=== PATIENT | female | born 1975 | race Caucasian/White ===

== ENCOUNTER 2020-01-09 06:27 | Day surgery (SDC) | payer BC ==
[2020-01-06 12:30] LABS: Urine Appearance CLEAR; Urine Bilirubin NEGATIVE (NEG); Urine Blood NEGATIVE (NEG); Urine Color YELLOW; Urine Glucose NEGATIVE (NEG); Urine Protein NEGATIVE (NEG); Urine Specific Gravity 1.015 (1.005-1.030)
[2020-01-06 12:32] LABS: Urine Microscopic Reflex NO UMIC
[2020-01-06 12:38] LABS: Absolute Lymphocytes (CBC) 2.6 K/uL (0.7-4.9); Basophils % 0.5 % (0-1.3); Hematocrit 40.2 % (36.0-45.0); Lymphocytes % 36.5 % (15.3-44.8); MPV 9.2 fL (7.6-11.3); RBC Red Blood Cell Count 4.19 M/uL (3.86-4.86)
[2020-01-09 06:44] LABS: Specific Gravity 1.025 (1.005-1.030)
[2020-01-09] MEDS ORDERED: SCOPOLAMINE HYDROBROMIDE PATCH TD ONE (06:59)
[2020-01-09] MEDS ORDERED: Ringers Lactate 1,000 ML IV ONE ×3 (06:59→12:27)
[2020-01-09] MEDS ORDERED: propofoL 200 MG/20 ML VIAL IV ONE (07:12)
[2020-01-09] MEDS ORDERED: GLYCOPYRROLATE 0.2 MG/ML SYR ONE (07:13)
[2020-01-09] MEDS ORDERED: ROCURONIUM 50 MG/5 ML VIAL IV ONE ×2 (07:13→08:27)
[2020-01-09] MEDS ORDERED: LIDOCAINE 2% MPF 5 ML VIAL ONE (07:14)
[2020-01-09] MEDS ORDERED: FENTANYL CITR 250 MCG/5 ML ONE ×2 (07:15→09:12)
[2020-01-09] MEDS ORDERED: NEOSTIGMINE 1 MG/ML -5 ML ONE (07:16)
[2020-01-09] MEDS ORDERED: dexAMETHasone 10 MG/ML VIAL ONE (07:16)
[2020-01-09] MEDS ORDERED: ONDANSETRON 4 MG/2 ML VIAL ONE ×4 (07:16→11:34)
[2020-01-09] MEDS ORDERED: MIDAZOLAM HCL 2 MG/2 ML INJ ONE (07:23)
[2020-01-09] MEDS ORDERED: CEFAZOLIN/SWI 2gm 2 GM/20 ML SYR ONE (07:55)
[2020-01-09] MEDS ORDERED: EPHEDRINE SULF 50 MG/ML VIAL ONE (08:13)
[2020-01-09] MEDS: BUPIVACAINE 0.25% PF 30 ML VIAL ONE ×2 (08:21→08:48)
[2020-01-09] MEDS ORDERED: MORPHINE 10 MG/ML VIAL ONE (09:11)
[2020-01-09] MEDS ORDERED: KETOROLAC 30 MG/ML INJ ONE (10:12)
[2020-01-09] MEDS: HYDROMORPHONE HCL 1 MG/ML INJ ONE ×2 (10:59→11:05)
[2020-01-09] MEDS ORDERED: HYDROMORPHONE HCL 1 MG/ML INJ ONE ×2 (11:16→11:24)
[2020-01-09] MEDS ORDERED: PROMETHAZINE INJ 25 MG/ML AMP ONE (11:40)
[2020-01-09] MEDS ORDERED: CODEINE 30MG/APAP 300MG TAB ONE (12:55)
[2020-01-09 14:32] VITALS: BP 90/69; TEMP 97; O2SAT 100
--- NOTE | 2020-01-09 22:35 | OP ---
Date of Procedure: 01/09/2020 Surgeon: Cayla Gill MD Lozenge Dough Mixer: Frederick. Preoperative Diagnoses: Pelvic pain, history of menorrhagia status post ablation, history of dysmeno rrhea, left lower quadrant pain, low back pain. Postoperative Diagnoses: Pelvic pain, history of menorrhagia status post ablation, history of dysmen orrhea, left lower quadrant pain, low back pain. Procedures Performed: Total laparoscopic hysterectomy, bilateral salpingectomy, left oophorectomy, a nd lysis of adhesion. Anesthesia: General endotracheal. Estimated Blood Loss: Minimal. Specimens: Uterus, bilateral tubes, and left ovary. Complications: None. Drains: No drains. Condition: Stable. Indications: Patient is a 44-year-old with history of menorrhagia; status post ablation. Her bleedi ng has resolved. However, her pelvic pain and dysmenorrhea still remained. The left lower quadrant pain has gotten worse over the past 2 years. Discussed about various options of laparoscopy with pos sible endo-treatment or bilateral salpingectomy and oophorectomy on the left side versus laparoscopic hysterectomy and bilateral salpingectomy with left oophorectomy. After discussing the benefits and risks of each procedure, she was consented for the hysterectomy and then she was brought to the OR. Description Of Procedure: 2 g of Ancef was given preop. She was taken back to OR, placed in supine fashion. On the operating table general anesthesia given, placed in dorsal lithotomy position. Arms tucked by the side. Time-out done. Abdomen, vulva, vagina, and perineum prepped and draped in a st erile fashion. A large VCare was introduced into the uterus with slight resistance due to her ablati on, but placed without a problem and then De Leon placed and connected through cysto-tubing to an LR ba g, emptied 300. After the bottom area was draped a 1 cm infraumbilical incision was made with a scalpel, opened with laparoscopy technique. Fascia was incised, tagged with 0 Vicryl sutures. Peritoneum entered sharply . S-retractors were placed. Garrett introduced. Site of entry was checked, unremarkable. Upper abd ominal surface was unremarkable as well. No significant adhesions from the bypass. Patient was plac ed in Trendelenburg position, 10 mm suprapubic, 5 mm left lower quadrant ports all placed after Denise ine was injected in the skin and the fascia. Then adhesions of the bowel were taken from the right l ower quadrant the sigmoid from the sidewall, almost had an area where there could be bowel entrapment from intussusception or internal herniation. Once this was resolved, both ureters were traced from the pelvic brim to the ureteric tunnel. There was no anatomical distortion in the courses of the ureters. Bipolar LigaSure was taken and left tube was removed. Utero-ovarian ligament taken down, round ligam ent taken down on the left side. Broad ligament opened up to create the bladder flap all the way to the right side and posteriorly to the uterosacral ligament. The vessels were skeletonized and the bl adder was reflected inferiorly, anterior vaginal wall was exposed. On the opposite side, similar dissection was performed after removing the tube, utero-ovarian ligamen t and round ligament were all taken down, the broad ligament was opened up anteriorly connected with the bladder flap on the opposite side, and posteriorly taken down to the uterosacral ligament. Utero sacral ligaments were attempted to be left attached to the apex of the vagina. Then the vessels were skeletonized on the right side as well and then monopolar hook blade was used to clean up the anteri or vaginal wall and the vesicovaginal space was entered and the bladder was dissected inferiorly. Bipolar basket tip was used to cauterize both the vessels first, then the LigaSure was used to take t hem down, then cardinal ligament was taken down with the help of the bipolar and then the LigaSure. On the opposite side similar dissection was performed and then circumferential colpotomy with monopol ar hook blade. The specimen was pulled out through the vagina without any problems. The left ovary was then taken down after visualizing the ureter at the level of the pelvic brim. The ovarian vessel s were taken down the IP ligament. The specimen was retrieved through the vagina. There was a cyst on the left ovary which appeared to be hemorrhagic, unsure if this was an endometrioma until this was removed as the patient's symptoms w ere mostly on the left side. Thorough irrigation and suction of the vaginal cuff was performed. Then 2-layer closure with 2-0 V-L oc suture was done starting on the right side. First layer vaginal epithelium and sub-epithelium wer e closed in a continuous running fashion. Then the connective tissue, fascia, and the posterior and anterior wall were closed on top of it and 2 back sutures were placed so that V-Loc would not slip. While closing the fascial layers, the uterosacrals were included in the closure and the apex was well supported at the end of the procedure. Ureters had no evidence of electrical, mechanical, or thermal injury to them. They had good peristal sis even at the end of the procedure. The trocars were removed, gas was desufflated, fascia closed w ith tag 0 Vicryl sutures and subcutaneous tissues brought together with simple chromic 3-0, simple 0 Vicryl suture at the suprapubic fascia, incisional fascia, and all the incisions injected with Marcai ne and closed with the help of 4-0 interrupted sutures in a subcuticular fashion. De Leon was removed. The vaginal pack that was placed for pneumo-occlusion was removed. Instrument, needle, and sponge counts were done and were correct at the end of the case. Patient tolerated the procedure well, she was recovered from anesthesia and taken to PACU in a stable condition. Inside the peritoneal cavity after the closure of the V-Loc, I closed the peritoneum was well with a running 3-0 Monocryl suture with intracorporeal knots on top of the vaginal introitus so that there was no ex posure of the V-Loc. STEPHANIE/EMILY Voice ID: [id number] Report ID: [id number]
== END 2020-01-09 14:30 | disposition home or self-care (01) ==
LOC: OR 06:27
PROVIDERS: ATTEND Obstetrics & Gynecology
PROC: 0UT14ZZ Resection of Left Ovary, Percutaneous Endoscopic Approach (ICD-10-PCS; 2020-01-09)
PROC: 0UT74ZZ Resection of Bilateral Fallopian Tubes, Percutaneous Endoscopic Approach (ICD-10-PCS; 2020-01-09)
PROC: 0UT94ZZ Resection of Uterus, Percutaneous Endoscopic Approach (ICD-10-PCS; principal; 2020-01-09 07:30)
DX: N92.0 Excessive and frequent menstruation with regular cycle (principal); N94.6 Dysmenorrhea, unspecified; N83.12 Corpus luteum cyst of left ovary; N83.8 Other noninflammatory disorders of ovary, fallopian tube and broad ligament; K66.0 Peritoneal adhesions (postprocedural) (postinfection); M54.5 Low back pain; F41.9 Anxiety disorder, unspecified; Z88.6 Allergy status to analgesic agent; Z90.49 Acquired absence of other specified parts of digestive tract; Z98.84 Bariatric surgery status
CPT/HCPCS: 85025; 36415; 86900; 86850; 81025; 86901; 88307; 81003; 58571; J2704; J2550; J2250; J3010 ×2; J1100; J1170 ×3; J2710; J0690; J7120 ×3; J2405 ×4

== ENCOUNTER 2020-07-06 18:06 | Emergency (ER) | payer BC, OTHER ==
--- OUTSIDE RECORDS SUMMARY | 2020-07-06 18:08 | XMS REPORT | Continuity of Care Document ---
:1975 Author Organization [facility] Care Team Providers Name Role Phone [facility] Unavailable Un available Problems Problem Status Onset Classification Date Comments Sourc e Date Reported 65105, REFLUX Active Mem orial 6 City Discharge 07/10/2016 Nickori al Diagnosis: [facility] Acute gastritis ABD PAIN Active Memoria l [facility] Calculus in Resolved Problem 07/10/2016 Ori rial biliary tract [facility] (disorder) Medications Medication Details Route Status Patient Ordering Order Source Instructions Provider Date Esomeprazole 40 40 mg = 1 Active MG Enteric cap, PO, 016 [facility] Coated Capsule Daily, # [facility] [Nexium] 30 cap, 1 Refill(s) Sucralfate 100 1 gm = 10 Active MG/ML Oral ml, PO, 016 [facility] Suspension QID-Before [facility] [Carafate] Meals, # 400 ml, 0 Refill(s) GI cocktail 30 mL, Inactive Route: PO, 016 [facility] Weight 63.636, kg, ONCE, STAT, Start date: 07/06/16 20:56:00 CDT, Stop date: 07/06/16 20:56:00 CDT Allergies, Adverse Reactions, Alerts Substance Category Reaction Severity Reaction Status Date Comments S ource type Reported Tape Assertion Drug Active allergy [facility] Vicodin Assertion Drug Active allergy [facility] Immunizations No Data Provided for This Section Results Order Name Results Value Reference Date Interpretation Comments Erika rce Range CHEM PANEL Amylase Lvl 63 25 - 115 07/06 [facility] CHEM PANEL Lipase Lvl 172 73 - 393 07/06 [facility] CHEM PANEL B/C Ratio 13 6 - 25 07/06 [facility] CHEM PANEL AGAP 12.7 10.0 - 07/06 MH 20.0 [facility] CHEM PANEL Globulin 3.8 2.7 - 4.2 07/06 [facility] CHEM PANEL A/G Ratio 1.0 0.7 - 1.6 07/06 [facility] CHEM PANEL Glucose Lvl 83 70 - 99 07/06 [facility] CHEM PANEL eGFR 87 07/06 Result Comment: The [facility] eGFR is City calculated using the CKD-EPI formula. In most young, healthy individuals the eGFR will be >90 mL/min/1.73m2 . The eGFR declines with age. An eGFR of 60-89 may be normal in some populations, particularly the elderly, for whom the CKD-EPI formula has not been extensively validated. Use of the eGFR is not recommended in the following populations:< br/>
Diann viduals with unstable creatinine concentration s, including patients and those with serious co-morbid conditions.<b r/>
Patie nts with extremes in muscle mass or diet.

The data above are obtained from the National Kidney Disease Education Program (NKDEP) which additionally recommends that when the eGFR is used in patients with extremes of body mass index for purposes of drug dosing, the eGFR should be multiplied by the estimated BMI. CHEM PANEL Creatinine 0.83 0.50 - 07/06 Lvl 1.40 /2015 [facility] CHEM PANEL AST 25 0 - 37 07/06 [facility] CHEM PANEL BUN 11 7 - 22 07/06 [facility] CHEM PANEL CO2 27 24 - 32 07/06 [facility] CHEM PANEL Calcium Lvl 9.1 8.5 - 10.5 07/06 [facility] CHEM PANEL Sodium Lvl 141 135 - 145 07/06 [facility] CHEM PANEL Albumin Lvl 3.9 3.5 - 5.0 07/06 [facility] CHEM PANEL Potassium Lvl 3.7 3.5 - 5.1 07/06 [facility] CHEM PANEL Chloride Lvl 105 95 - 109 07/06 [facility] CHEM PANEL Bili Total 0.8 0.2 - 1.3 07/06 [facility] CHEM PANEL ALT 37 0 - 65 07/06 [facility] CHEM PANEL Alk Phos 63 39 - 136 07/06 [facility] CHEM PANEL Total Protein 7.7 6.4 - 8.4 07/06 [facility] HEMATOLOGY Monocytes # 0.6 0.0 - 0.8 / /2015 [facility] HEMATOLOGY Basophils 0.2 0.0 - 1.0 09/ /2015 [facility] HEMATOLOGY Segs-Bands # 6.1 1.5 - 8.1 07/06 [facility] HEMATOLOGY Eosinophils 1.3 0.0 - 4.0 07/06 [facility] HEMATOLOGY Monocytes 5.8 2.0 - 12.0 07/06 [facility] HEMATOLOGY Lymphocytes # 3.8 1.0 - 5.5 07/06 [facility] HEMATOLOGY Segs 57.1 45.0 - 09 MH 75.0 /2015 [facility] HEMATOLOGY Lymphocytes 35.6 20.0 - 07/06 MH 40.0 /2015 [facility] HEMATOLOGY Eosinophils # 0.1 0.0 - 0.5 07/06 [facility] HEMATOLOGY Basophils # 0.0 0.0 - 0.2 07/06 [facility] HEMATOLOGY MCV 93.2 80.0 - 07/06 MH 98.0 /2015 [facility] HEMATOLOGY RBC 4.10 4.20 - 07/06 MH 5.40 /2015 [facility] HEMATOLOGY Hgb 13.1 12.0 - 07/06 MH 16.0 /2015 [facility] HEMATOLOGY Hct 38.3 36.0 - 07/06 MH 48.0 /2015 [facility] HEMATOLOGY MCH 32.0 27.0 - 07/06 MH 31.0 /2015 [facility] HEMATOLOGY WBC 10.7 3.7 - 10.4 07/06 [facility] HEMATOLOGY Platelet 224 133 - 450 07/06 [facility] HEMATOLOGY RDW 13.4 11.5 - 07/06 MH 14.5 /2015 [facility] HEMATOLOGY MCHC 34.4 32.0 - 07/06 MH 36.0 /2015 [facility] HEMATOLOGY MPV 8.6 7.4 - 10.4 07/06 [facility] URINE AND UA <=1.0 0.1 - 1.0 07/06 STOOL Urobilinogen mg/dL /2015 [facility] URINE AND UA Color Straw 07/06 STOOL /2015 [facility] URINE AND UA Ketones Negative 07/06 STOOL /2015 [facility] URINE AND UA Bacteria Few /HPF None Seen 07/06 STOOL /HPF /2015 [facility] URINE AND UA Leuk Est Negative Negative 07/06 STOOL (9/7/16 3:38 PM) [facility] URINE AND UA Nitrite Negative Negative 07/06 STOOL (07/06/16 3:38 PM) [facility] URINE AND UA WBC 1 0 - 5 07/06 [facility] URINE AND UA Sq Epi Few /LPF Few /LPF 07/06 /2015 [facility] URINE AND UA RBC 1 0 - 2 07/06 [facility] URINE AND UA Turbidity Clear Clear 07/06 STOOL (07/06/16 3:38 PM) [facility] URINE AND UA Bili Negative Negative 07/06 STOOL *NA* /2015 [facility] (07/06/16 3:38 PM) [facility] URINE AND UA Blood Negative Negative 07/06 STOOL (07/06/16 3:38 PM) [facility] URINE AND UA Glucose Negative Negative 07/06 STOOL mg/dL mg/dL [facility] URINE AND UA Protein Negative Negative 07/06 STOOL mg/dL mg/dL [facility] URINE AND UA Spec Grav 1.008 <=1.030 07/06 [facility] URINE AND UA pH 7.0 5.0 - 8.0 07/06 [facility] URINE CHEM U Preg Negative Negative 07/06 (07/06/16 3:38 PM) [facility] Pathology Reports No Data Provided for This Section Diagnostic Reports Report Value Date Source ED Abdomen/Pelvis IV CLINICAL HISTORY PROVIDED: Abdominal pa in, acute. 07/06/2016 [facility] contrast only CT SEX: Female. : 1975. PROCEDURE: Axial scans through the abdo men and pelvis with gastrointestinal contrast and with intravenous contrast using 100 cc of Omnipaque 300 including multiplanar computer reformations. Total Dose Length Product: DLP - 621 mGy-cm COMPARISON: No prior relevant imaging FINDINGS: Liver measures measures up t o 14.6 cm in greatest axial dimension. The liver is normal in appearance. Spleen normal in appearance. The spleen measures up to 8.7 cm in greatest axial dimension. Clips within the gallbladder fossa are compatible with prior cholecystectomy. No biliary dilatation evident. Pancreas is normal. No adrenal mass. Bilateral kidneys appear normal. No evidence for mass or hydronephrosis. Normal distal ureters and bladder. Normal large and small bowel loops without evidence for obstruction. The region of the appendix is within normal limits without evidence to confirm appendicitis. Normal aorta and iliac arteries without evidence for aneurysm. No substantial free fluid or defined extralumina l fluid collection. There is no evidence of any extraluminal gas Lung bases demonstrate no acute pulmonary parenc hymal or pleural process. Skeletal structures: No acute abnormality. IMPRESSION: 1. No acute CT findings. Consultation Notes No Data Provided for This Section Discharge Summaries No Data Provided for This Section History and Physicals No Data Provided for This Section Vital Signs Vital Sign Value Date Comments Source Respitory Rate 16 07/07/2016 [facility] Systolic (mm Hg) 120 07/07/2016 [facility] Diastolic (mm Hg) 86 07/07/2016 [facility] [place] Temperature Oral (F) 98.7 F 07/06/2016 [facility] Respitory Rate 16 07/06/2016 [facility] Weight 63.636 07/06/2016 [facility] Heart Rate 84 07/06/2016 [facility] Systolic (mm Hg) 134 07/06/2016 [facility] Diastolic (mm Hg) 81 07/06/2016 [facility] [place] Encounters Location Location Encounter Encounter Reason Attending ADM DC Stat us Source Details Type Number For Provider Date Date [facility] [id number] Nasir Ali 07/06 07/07 [facility] /2015 [facility] Procedures Procedure Code Date Perfomer Comments Source Gastric bypass [id number] 06/07/2013 [facility] operation [facility] Cholecystectomy [id number] 02/08/2009 [facility] Hernia repair [id number] 10/30/2004 [facility] Breast reduction, [id number] 10/30/1994 [facility] bilateral [facility] Assessment and Plan No Data Provided for This Section Plan of Care No Data Provided for This Section Social History Social History Date Source Social History TypeResponse 07/07/2016 [facility] Smoking Status Never smoker; Exposure to Tobacco Smoke None; Cigarette Smoking Last 365 Days No; Reg Smoking Cessation Counseling No Family History No Data Provided for This Section Advance Directives No Data Provided for This Section Functional Status No Data Provided for This Section
--- NOTE | 2020-07-06 19:17 | RAD REPORT ---
EXAM DESCRIPTION: Jose Antonio Single View07/06/2020 7:12 pm CLINICAL HISTORY: Cough COMPARISON: 2011 FINDINGS: The lungs appear clear of acute infiltrate. The heart is normal size IMPRESSION: No acute abnormalities displayed
--- NOTE | 2020-07-06 20:00 | ER ---
Nurse's Notes [facility] Name: Fatimah Blackwood Age: 45 yrs Sex: Female : 1975 Arrival Date: 07/06/2020 Time: 18:08 Bed 6 Private MD: Diagnosis: Acute upper respiratory infection, unspecified Presentation: 07/06 18:26 Chief complaint: Patient states: chills, fever Tmax 100.2, frontal headache, midsternal sv chest pain with deep breathing as a tightness that radiates to the middle of the shoulder blades started 40 mins ago. Coronavirus screen: Client denies travel out of the [place] in the last 14 days. chills, headache, Client presents with at least one sign or symptom that may indicate coronavirus-19. Standard/surgical mask placed on the client. Provider contacted for isolation considerations. Ebola Screen: No symptoms or risks identified at this time. 18:26 Method Of Arrival: Ambulatory sv 18:27 Initial Sepsis Screen: Does the patient meet any 2 criteria? HR > 90 bpm. No. Patient's sv initial sepsis screen is negative. Does the patient have a suspected source of infection? No. Patient's initial sepsis screen is negative. Risk Assessment: Do you want to hurt yourself or someone else? Patient reports no desire to harm self or others. Onset of symptoms was July 06, 2020. 18:27 Acuity: [place] 3 sv Triage Assessment: 18:29 General: Appears in no apparent distress. uncomfortable, well developed, Behavior is sv calm, cooperative, appropriate for age. Pain: Complains of pain in chest Pain radiates to thoracic area Pain currently is 6 out of 10 on a pain scale. Pain began 40 mins ago Is intermittent, episodic, Aggravated by deep breathing. Neuro: Level of Consciousness is awake, alert, obeys commands, Oriented to person, place, time, situation, Moves all extremities. Full function Gait is steady, Speech is normal. Neuro: Reports headache frontal area. Cardiovascular: Patient's skin is warm and dry. Respiratory: Respiratory effort is even, unlabored, Respiratory pattern is regular, symmetrical. Derm: Skin is normal. COUNTER MANAGER: 18:32 LMP N/A - Hysterectomy sv Historical: - Allergies: 18:29 HYDROCODONE; sv - PMHx: 18:29 None; sv - PSHx: 18:29 ablasion; Gastric Bypass; Hysterectomy; Breast reduction; Hernia repair; sv - Immunization history:: Adult Immunizations up to date. - Social history:: Smoking status: . Screenin:32 Abuse screen: Denies threats or abuse. Denies injuries from another. Nutritional sv screening: No deficits noted. Tuberculosis screening: No symptoms or risk factors identified. Fall Risk None identified. Assessment: 18:58 Reassessment: COVID-19 sent. sv 19:10 Reassessment: Patient and/or family updated on plan of care and expected duration. Pain mt2 level reassessed. Patient is alert, oriented x 3, equal unlabored respirations, skin warm/dry/pink. Patient denies pain at this time. General: Appears in no apparent distress. Behavior is cooperative. Pain: Denies pain. 19:44 Pain: Denies pain. mt2 19:44 Reassessment: Patient and/or family updated on plan of care and expected duration. Pain mt2 level reassessed. Patient is alert, oriented x 3, equal unlabored respirations, skin warm/dry/pink. Patient denies pain at this time. General: Appears in no apparent distress. Behavior is cooperative. 19:57 Reassessment: Patient and/or family updated on plan of care and expected duration. Pain mt2 level reassessed. Patient is alert, oriented x 3, equal unlabored respirations, skin warm/dry/pink. General: Appears uncomfortable, Behavior is cooperative. Pain: Complains of pain in chest Pain currently is 5 out of 10 on a pain scale. Quality of pain is described as aching. 20:39 Reassessment: Patient appears in no apparent distress at this time. Patient is alert, rr5 oriented x 3, equal unlabored respirations, skin warm/dry/pink. discharge instruction given and explained without complaints made. Awaiting for the shot time then discharge. Vital Signs: 18:27 BP 125 / 97; Pulse 94 MON; Resp 18; Temp 100.3(O); Pulse Ox 100% ; Weight 72.57 kg; sv Height 5 ft. 3 in. (160.02 cm); Pain 6/10; 19:11 BP 140 / 91; Pulse 101; Resp 16; Pulse Ox 97% ; Pain 0/10; mt2 19:45 BP 128 / 85; Pulse 91; Resp 16; Pulse Ox 97% ; Pain 0/10; mt2 19:58 BP 127 / 79; Pulse 95; Resp 16; Pulse Ox 96% ; Pain 5/10; mt2 18:27 Body Mass Index 28.34 (72.57 kg, 160.02 cm) sv 18:27 Sinus Rhythm sv ED Course: 18:08 Patient arrived in ED. ds1 18:20 Unique Landeros RN is Primary Nurse. sv 18:22 Arm band placed on. sv 18:25 Alonzo Boyd NP is PHCP. pm1 18:25 Zuleyma Loredo MD is Attending Physician. pm1 18:28 Triage completed. sv 18:32 Patient has correct armband on for positive identification. Placed in gown. Bed in low sv position. Call light in reach. school lunch monitor on. Pulse ox on. NIBP on. Door closed. Head of bed elevated. 18:32 Patient maintains SpO2 saturation greater than 95% on room air. sv 18:33 Awaiting ED provider evaluation. sv 18:41 Nurse Practitioner and/or Physician [employer]or [employer] to see patient. sv 18:58 Primary Nurse role handed off by Unique Landeros RN sv 18:58 Report given to Jaun OCHOA. sv 18:58 Flu and/or RSV swab sent to lab. Strep swab sent to lab. sv 19:02 Leslie Barboza RN is Primary Nurse. mt2 19:13 CXR XRAY In Process Unspecified. EDMS Administered Medications: 20:30 Drug: TORadol 60 mg Route: IM; Site: right gluteus; rr5 20:54 Follow up: Response: No adverse reaction rr5 20:33 Drug: Tylenol 1000 mg Route: PO; rr5 20:54 Follow up: Response: No adverse reaction rr5 Outcome: 19:59 Discharge ordered by . pm1 20:53 Patient left the ED. rr5 Addendum: 07/09/2020 19:15 Addendum: COVID-19 Result: Positive result giiven to ED physician to notify pt. i w Physician: Reinier Hope MD Physician was able to contact pt and pt was notified of positive COVID-19 swab result. Physician answered pt questions. Signatures: Dispatcher [employer] EDMS Unique Landeros RN RN Jaylene Chamberlain ds1 Alvina Bagley, DON RN iw Alonzo Boyd, CIVIL DRAFTING TECHNICIAN CIVIL DRAFTING TECHNICIAN pm1 Jaun Perez, DON RN rr5 Leslie Barboza RN RN mt2 Corrections: (The following items were deleted from the chart) 07/06 18:32 18:27 BP 125 / 97; Pulse 94bpm; Resp 18bpm; 72.57 kg; Height 5 ft. 3 in.; BMI: 28.3; sv Pain 6/10; sv
--- NOTE | 2020-07-06 20:00 | EDPHYS ---
Physician Documentation [facility] Name: Fatimah Blackwood Age: 45 yrs Sex: Female : 1975 Arrival Date: 07/06/2020 Time: 18:08 Bed 6 Private MD: ED Physician Zuleyma Loredo HPI: 07/06 18:49 This 45 yrs old Female presents to ER via Ambulatory with complaints of Chest pm1 Pain, Chills, Headache. 18:49 The patient or guardian reports cough, with no sputum, flu symptoms, low-grade fever. pm1 Onset: The symptoms/episode began/occurred 1 hour(s) ago. Severity of symptoms: in the emergency department the symptoms are unchanged. Modifying factors: The symptoms are alleviated by nothing, the symptoms are aggravated by nothing. Associated signs and symptoms: Pertinent positives: chest pain, with deep breathing, fever, sore throat, Headache. The patient has not experienced similar symptoms in the past. Patient also reports a taste sensation difference with her tongue and decreased appetite. 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 - Social history:: Smoking status: . ROS: 18:49 Eyes: Negative for injury, pain, redness, and discharge. pm1 18:49 Respiratory: Negative for shortness of breath, cough, wheezing, and pleuritic chest pain, Abdomen/GI: Negative for abdominal pain, nausea, vomiting, diarrhea, and constipation, Back: Negative for injury and pain, MS/Extremity: Negative for injury and deformity, Skin: Negative for injury, rash, and discoloration. 18:49 Constitutional: Positive for body aches, chills, fever. 18:49 ENT: Positive for sore throat. 18:49 Cardiovascular: Positive for chest pain, with deep breathing. 18:49 Neuro: Positive for headache. Exam: 18:49 Constitutional: This is a well developed, well nourished patient who is awake, alert, pm1 and in no acute distress. Head/Face: Normocephalic, atraumatic. ENT: Nares patent. No nasal discharge, no septal abnormalities noted. Tympanic membranes are normal and external auditory canals are clear. Oropharynx with no redness, swelling, or masses, exudates, or evidence of obstruction, uvula midline. Mucous membranes moist. 18:49 Chest/axilla: Normal chest wall appearance and motion. Nontender with no deformity. No lesions are appreciated. Cardiovascular: Regular rate and rhythm with a normal S1 and S2. No gallops, murmurs, or rubs. Normal PMI, no JVD. No pulse deficits. Respiratory: Lungs have equal breath sounds bilaterally, clear to auscultation and percussion. No rales, rhonchi or wheezes noted. No increased work of breathing, no retractions or nasal flaring. 18:49 Back: No spinal tenderness. No costovertebral tenderness. Full range of motion. Skin: Warm, dry with normal turgor. Normal color with no rashes, no lesions, and no evidence of cellulitis. MS/ Extremity: Pulses equal, no cyanosis. Neurovascular intact. Full, normal range of motion. 18:49 Neck: Lymph nodes: lymphadenopathy is appreciated, anterior cervical nodes. 18:49 Abdomen/GI: Exam negative for acute changes, Inspection: abdomen appears normal, Palpation: abdomen is soft and non-tender, in all quadrants. 18:49 Neuro: Exam negative for acute changes, Orientation: is normal, Mentation: is normal, Motor: is normal, moves all fours. Vital Signs: 18:27 BP 125 / 97; Pulse 94 MON; Resp 18; Temp 100.3(O); Pulse Ox 100% ; Weight 72.57 kg; sv Height 5 ft. 3 in. (160.02 cm); Pain 6/10; 19:11 BP 140 / 91; Pulse 101; Resp 16; Pulse Ox 97% ; Pain 0/10; mt2 19:45 BP 128 / 85; Pulse 91; Resp 16; Pulse Ox 97% ; Pain 0/10; mt2 19:58 BP 127 / 79; Pulse 95; Resp 16; Pulse Ox 96% ; Pain 5/10; mt2 18:27 Body Mass Index 28.34 (72.57 kg, 160.02 cm) sv 18:27 Sinus Rhythm sv MDM: 18:45 Patient medically screened. pm1 19:58 Data reviewed: vital signs. Data interpreted: Pulse oximetry: on room air is 97 %. pm1 Interpretation: normal. Counseling: I had a detailed discussion with the patient and/or guardian regarding: the historical points, exam findings, and any diagnostic results supporting the discharge/admit diagnosis, lab results, radiology results, the need for outpatient follow up, to return to the emergency department if symptoms worsen or persist or if there are any questions or concerns that arise at home, suspect that likely covid-19 infection. 07/06 18:45 Order name: COVID-19 pm1 07/06 18:45 Order name: Flu; Complete Time: 19:58 pm1 07/06 18:45 Order name: CXR XRAY; Complete Time: 19:22 pm1 07/06 18:45 Order name: Strep; Complete Time: 19:37 pm1 07/06 19:30 Order name: Throat Culture EDMS 07/06 18:45 Order name: Droplet/Contact Precautions; Complete Time: 18:46 pm1 07/06 18:45 Order name: Labs collected and sent; Complete Time: 18:58 pm1 07/06 18:45 Order name: O2 Per Protocol; Complete Time: 18:46 pm1 Administered Medications: 20:30 Drug: TORadol 60 mg Route: IM; Site: right gluteus; rr5 20:54 Follow up: Response: No adverse reaction rr5 20:33 Drug: Tylenol 1000 mg Route: PO; rr5 20:54 Follow up: Response: No adverse reaction rr5 Disposition: 07/06/20 19:59 Discharged to Home. Impression: Acute upper respiratory infection, unspecified. - Condition is Stable. - Discharge Instructions: Upper Respiratory Infection, Adult, COVID-19. - Prescriptions for Prednisone 20 mg Oral Tablet - take 1 tablet by ORAL route every 12 hours for 7 days; 14 tablet. Zithromax Z- [place] 250 mg Oral Tablet - take 1 tablet by ORAL route as directed for 5 days Day 1 - take two (2) tablets one time. Day 2, 3, 4 , 5 take one (1) tablet once daily.; 6 tablet. - Work release form, Medication Reconciliation Form, Thank You Letter, Antibiotic Education, Prescription Opioid Use form. - Follow up: Emergency Department; When: As needed; Reason: Worsening of condition. Follow up: Private Physician; When: 2 - 3 days; Reason: Recheck today's complaints, Continuance of care, Re-evaluation by your physician. - Problem is new. - Symptoms have improved. Addendum: 07/10/2020 16:21 Co-signature as Attending Physician, Zuleyma Loredo MD. m a2 Signatures: Dispatcher [employer] EDUnique Wood RN RN Alonzo Boyd, SPINDLE SANDER SPINDLE SANDER pm1 Zuleyma Loredo MD MD sc2 Jaun Perez RN RN rr5 Corrections: (The following items were deleted from the chart) 07/06 18:45 18:45 Document PUI# ordered. pm1 18:46 18:45 Notify Health Dept [phone]/ ordered. 1 20:53 19:59 07/06/2020 19:59 Discharged to Home. Impression: Acute upper respiratory rr5 infection, unspecified. Condition is Stable. Forms are Medication Reconciliation Form, Thank You Letter, Antibiotic Education, Prescription Opioid Use. Follow up: Emergency Department; When: As needed; Reason: Worsening of condition. Follow up: Private Physician; When: 2 - 3 days; Reason: Recheck today's complaints, Continuance of care, Re-evaluation by your physician. Problem is new. Symptoms have improved. pm1
[2020-07-06] MEDS ORDERED: ACETAMINOPHEN 500 MG TAB ONE (20:38)
[2020-07-06] MEDS ORDERED: KETOROLAC 30 MG/ML INJ ONE (20:38)
[2020-07-07 08:24] VITALS: TEMP 100.3
[2020-07-07 08:28] VITALS: BP 127/79; O2SAT 96
== END 2020-07-06 20:53 | disposition home or self-care (01) ==
LOC: ER 18:06
DX: U07.1 COVID-19 (principal); J06.9 Acute upper respiratory infection, unspecified; Z98.84 Bariatric surgery status; Z88.5 Allergy status to narcotic agent
CPT/HCPCS: 87070; 87081; 87804 ×2; 71045; 96372; 99285; U0002